=== PATIENT | male | born 1960 | race Caucasian/White ===

== ENCOUNTER 2017-12-22 21:45 | Inpatient (IN) ==
--- NOTE | 2017-12-22 22:30 | Emergency Department Note ---
Disposition Clinical Impression: Pulmonary embolism and infarction Disposition: Admitted As Inpatient Condition: Good Forms: ED Satisfaction Letter Time of Disposition: 23:01 General Adult HPI - General Chief complaint: ED Recheck/Abnormal Lab/Rx Stated complaint: "bilatereral PE" Time Seen by Provider: 12/22/17 22:12 Source: EMS Limitations: no limitations Nursing Notes Reviewed: Yes Vital Signs Reviewed: Yes - History of Present Illness HPI Narrative: Bilateral pulmonary embolism after traveling here from [place] yesterday. Start having left-sided chest pain last night. Shortness of breath ensued today. [facility] and sent here. Did get some mild relief of the left- sided chest pain and shoulder pain with lidocaine gel. Does have a history of PE in January. He was on Primaxin until June after some normal coag studies they stopped the productive. The initial PE was provoked by surgery. This PE is provoked by prolonged travel. Pain Scale: 6 - Related Data Allergies Allergy/AdvReac Type Severity Reaction Status Date / Time ibuprofen [From Motrin] Allergy See Verified 12/22/17 22:17 Comments pseudoephedrine Allergy Hallucinati Verified 12/22/17 22:18 [From Sudafed] ng All systems ED: reviewed and negative except as stated. Constitutional: Denies: fever, chills ENT ED: Denies: congestion Cardiovascular: Reports: chest pain, dyspnea on exertion. Denies: syncope Respiratory: Reports: dyspnea. Denies: cough, wheezes, sputum production Gastrointestinal: Denies: abdominal pain, nausea, vomiting, diarrhea, hematemesis, melena, hematochezia Genitourinary: Denies: urgency, dysuria, frequency, hematuria Musculoskeletal: Reports: back pain (Left-sided shoulder blade tenderness). Denies: neck pain Integumentary: Denies: rash Neurological: Denies: headache, weakness Past Medical History - Past Medical History Attestation: Yes The following information was validated with the patient. Source: patient Medical history: Reports: other (PE) Psychiatric history: Reports: no psych history - Social History Smoking Status: Former smoker Smokeless Tobacco Status: No Alcohol use: Reports: none Drug use: Reports: none Physical Exam - General Limitations: no limitations General appearance: alert, in no apparent distress - Head Head exam: atraumatic, normocephalic, normal inspection - Eye Eye exam: Present: normal appearance, PERRL, EOMI - ENT ENT exam: normal exam, normal oropharynx, mucous membranes moist - Neck Neck exam: Present: normal inspection, full ROM, trachea midline - Chest Chest inspection: Present: normal inspection, symmetric chest wall rise - Respiratory Respiratory exam: Present: normal lung sounds bilaterally. Absent: respiratory distress, accessory muscle use - Cardiovascular Cardiovascular exam: Present: regular rate, normal rhythm, normal heart sounds - Abdominal Exam Abdominal exam: Present: soft, Non-Tender. Absent: tenderness, distention, guarding, rebound, rigidity, organomegaly - Extremities Exam Extremities exam: Present: normal inspection, full ROM, normal capillary refill. Absent: tenderness, pedal edema - Back Exam Back exam: Present: normal inspection, full ROM. Absent: tenderness - Neurological Exam Neurological exam: Present: alert, oriented X3 - Psychiatric Psychiatric exam: Present: normal affect, normal mood - Skin Skin exam: Present: warm, dry, intact, normal color Course Course Narrative: [facility] at their facility. They department unable to send the disc however we do have a read from them that shows what appears to be acute filling defects in the segmental arteries of the anterior left lower lobe lingula and posterior lateral right lower lobe. There is also a small nonocclusive filling defect within the right upper lobe segmental pulmonary arteries which appear to be chronic given his history of prior PE. There is also suggestion of a possible lobe infarct on the PE read as well. Patient's lab work up shows an elevated d-dimer. Patient has no history of bleeding disorders. No history of GI bleeding or intercerebral hemorrhage. He states that he was on for the accident previously however it made him feel funny and his head. His troponin was negative and he had an INR of 0.9. Patient is having ongoing left-sided chest pain and shortness of breath. He describes the pain as a 10 out of 10. He did get some mild relief with lidocaine gel initially prior to coming to the emergency department however that he states this is were off. He is requesting a lidocaine patch at this time. We have offered other pain medication he is refusing this time. We will admit patient to the hospital to initiate anticoagulation as well as due to patient's ongoing chest pain and short of breath and the patient has bilateral pulmonary embolus him.. He is maintaining an oxygen saturation of 97 % on 2 L. He states that this does also help with his shortness of breath. He was given Lovenox at the [facility] prior to arrival here. - Consultations Consultation #1: Dr Mata accepted in stable condition. Time: 22:45 Vital Signs Temperature 98.2 F 12/22/17 21:55 Pulse Rate 83 12/22/17 21:55 Respiratory Rate 16 12/22/17 21:55 Blood Pressure 130/94 12/22/17 21:55 O2 Sat by Pulse Oximetry 97 12/22/17 21:55 Temperature 98.2 F 12/22/17 21:55 Pulse Rate 83 12/22/17 21:55 Respiratory Rate 16 12/22/17 21:55 Blood Pressure 130/94 12/22/17 21:55 O2 Sat by Pulse Oximetry 97 12/22/17 21:55 Oxygen Delivery Oxygen Delivery Room Air Medical Decision Making - Medical Records Medical records reviewed: Yes I reviewed the patient's medical records. - Lab Data Lab results reviewed: Yes I reviewed the patient's lab results.
--- NOTE | 2017-12-22 22:54 | Emergency Department Note ---
Disposition Clinical Impression: Pulmonary embolism and infarction Disposition: Admitted As Inpatient Condition: Good [facility]: [facility] - Nesha Ricketts [Family Provider] - Forms: ED Satisfaction Letter General Adult HPI - General Chief complaint: ED Recheck/Abnormal Lab/Rx Stated complaint: "bilatereral PE" Time Seen by Provider: 12/22/17 22:12 Source: EMS Limitations: no limitations Nursing Notes Reviewed: Yes Vital Signs Reviewed: Yes - History of Present Illness Pain Scale: 6 - Related Data Home Medications Medication Instructions Recorded Confirmed Aspirin [Lo-Dose Aspirin EC] 81 mg PO DAILY 12/22/17 12/22/17 Capsaicin [Arthritis Pain Relief] 1 appl TP BID 12/22/17 12/22/17 Cholecalciferol (Vitamin D3) 400 unit PO DAILY 12/22/17 12/22/17 [Vitamin D3] Cyanocobalamin (Vitamin B-12) 1,000 mcg PO DAILY 12/22/17 12/22/17 [Vitamin B12] Doxycycline Hyclate [Vibramycin] 100 mg PO BID 12/22/17 12/22/17 Erythromycin OPTH Oint 1 appl BOTH EYES HS 12/22/17 12/22/17 Fluticasone Propionate Nasal 1 puff IH BID 12/22/17 12/22/17 [Flonase] Guaifenesin [Mucus ER] 600 mg PO TID 12/22/17 12/22/17 Lidocaine 4% CRM (LMX) [Lmx 4] 1 appl TP Q8HR 12/22/17 12/22/17 Polyvinyl Alcohol/Povidone 1 drop OP QID 12/22/17 12/22/17 [Artificial Tears Drops] Silver Sulfadiazine [Silvadene] 1 appl TP BID PRN 12/22/17 12/22/17 Allergies Allergy/AdvReac Type Severity Reaction Status Date / Time ibuprofen [From Motrin] Allergy See Verified 12/22/17 22:17 Comments pseudoephedrine Allergy Hallucinati Verified 12/22/17 22:18 [From Sudafed] ng Constitutional: Denies: fever, chills ENT ED: Denies: congestion Cardiovascular: Reports: chest pain, dyspnea on exertion. Denies: syncope Respiratory: Reports: dyspnea. Denies: cough, wheezes, sputum production Gastrointestinal: Denies: abdominal pain, nausea, vomiting, diarrhea, hematemesis, melena, hematochezia Genitourinary: Denies: urgency, dysuria, frequency, hematuria Musculoskeletal: Reports: back pain (Left-sided shoulder blade tenderness). Denies: neck pain Past Medical History - Past Medical History Medical history: Reports: no medical history Psychiatric history: Reports: no psych history - Social History Smoking Status: Former smoker Smokeless Tobacco Status: No Alcohol use: Reports: none Drug use: Reports: none Physical Exam - General Limitations: no limitations General appearance: alert, in no apparent distress Course Vital Signs Temperature 98.2 F 12/22/17 21:55 Pulse Rate 83 12/22/17 21:55 Respiratory Rate 16 12/22/17 21:55 Blood Pressure 130/94 12/22/17 21:55 O2 Sat by Pulse Oximetry 97 12/22/17 21:55 Temperature 98.2 F 12/22/17 21:55 Pulse Rate 83 12/22/17 21:55 Respiratory Rate 16 12/22/17 21:55 Blood Pressure 130/94 12/22/17 21:55 O2 Sat by Pulse Oximetry 97 12/22/17 21:55 Oxygen Delivery Oxygen Delivery Room Air Attestation Statement - Attestation Attestation: I, Pavan Martin MD, personally evaluated this patient and discussed their management with the resident physician. I reviewed the resident's note and agree with the documented findings, medical decision making, and plan of care. 57-year-old male [facility] for bilateral pulmonary emboli. Patient has a history of pulmonary emboli about a year ago after a surgical procedure on his shoulder. He was on Pradaxa which was discontinued 6 months ago. Over the past 2 days he drove here from [place]. He states he drove to [facility] yesterday and was fine last evening and then this morning when he woke up he was having some pleuritic left lower anterolateral chest pain with some mild shortness of breath. This got progressively worse throughout the day and radiates to the left scapular region. He drove here today and went straight to the CT where he had a workup including a CTA of the chest which showed extensive bilateral pulmonary emboli with groundglass opacity in the left upper lobe which could represent infectious or inflammatory process although infarction is not excluded. Patient received Lovenox 1 mg/kg at the CT prior to transfer here for admission. CT reported they did not have any critical care beds available for admission of the patient at their facility. Patient also admits to some left calf pain for the past few days and states that several days ago he had right calf pain which resolved. On examination patient is a well-developed well-nourished male in no acute distress. He is alert and oriented 3. There is no cyanosis or diaphoresis. Chest is nontender to palpation. Breath sounds are slightly decreased on the left. No rales or wheezes noted. Heart regular rate and rhythm. Abdomen soft and nontender with normal bowel sounds. Some mild left calf tenderness. CT records reviewed. The hospitalist, Dr. Shankar, was consulted and accepted admission of the patient.
[2017-12-23] MEDS ORDERED: Naloxone 0.4 MG/ML INJ IVP PRN (01:55)
--- NOTE | 2017-12-23 03:13 | Internal Med History&Physical ---
Date of Encounter: 12/23/17 Time of Encounter: 01:00 Internal Medicine - H&P: HPI Chief complaint: Chest pain Admitted From: Home Plans for Post Hospital Care: Home History of present illness: Mr. Harp is a 57 year old male transferred from the [facility] for chest pain. Past medical history is significant for pulmonary embolism, ROSE MARIE. Patient has history of pulmonary embolism, which was provoked by surgery, and the patient was placed on Pradaxa from January 2017 to Jun 2017. Patient started to have left-sided chest pain since yesterday when he drove from [place] to [place]. The pain is sharp, radiated to left side shoulder blader, 10/10 and worsening on deep breathing. Patient also complaining of left leg pain and swelling. In [place] hospital, CTA has been done, shows multiple bilateral acute PE with a right-sided chronic PE. Patient was given Lovenox 100 mg subcutaneously once and transferred to our hospital for further management. Past Med Surg Social Fam HX - Past Medical History Medical history: no medical history Additional medical history: PE Psychiatric history: no psych history - Past Surgical History Additional surgical history: shoulder, elbow - Social History Smoking Status: Former smoker Smokeless Tobacco Status: No Alcohol use: none Drug use: none - Family History Father Living Status: Age at : 74 Cause of : Prescription overdose Hx Family Cardiac Disorders: Yes Internal Medicine - H&P: Meds Aspirin [Lo-Dose Aspirin EC] 81 mg PO DAILY 12/22/17 [History] Capsaicin [Arthritis Pain Relief] 1 appl TP BID 12/22/17 [History] Cholecalciferol (Vitamin D3) [Vitamin D3] 400 unit PO DAILY 12/22/17 [History] Cyanocobalamin (Vitamin B-12) [Vitamin B12] 1,000 mcg PO DAILY 12/22/17 [History ] Doxycycline Hyclate [Vibramycin] 100 mg PO BID 12/22/17 [History] Erythromycin OPTH Oint 1 appl BOTH EYES HS 12/22/17 [History] Fluticasone Propionate Nasal [Flonase] 1 puff IH BID 12/22/17 [History] Guaifenesin [Mucus ER] 600 mg PO TID 12/22/17 [History] Lidocaine 4% CRM (LMX) [Lmx 4] 1 appl TP Q8HR 12/22/17 [History] Polyvinyl Alcohol/Povidone [Artificial Tears Drops] 1 drop OP QID 12/22/17 [ History] Silver Sulfadiazine [Silvadene] 1 appl TP BID PRN 12/22/17 [History] 3 Allergy/AdvReac Type Severity Reaction Status Date / Time ibuprofen [From Motrin] Allergy See Verified 12/22/17 22:17 Comments pseudoephedrine Allergy Hallucinati Verified 12/22/17 22:18 [From Sudafed] ng All Systems PM: A 10-system review of systems was performed and is negative for pertinent findings except as documented above in the HPI. - Constitutional Vitals: Temp Pulse Resp BP Pulse Ox 98.2 F 76 17 119/86 95 12/23/17 00:40 12/23/17 00:40 12/23/17 00:40 12/23/17 00:40 12/23/17 01:31 General appearance: Present: mild distress, A&O X 3, answers questions appropriately - Head Head exam: Present: atraumatic, normocephalic - Eye Eye exam: Present: PERRL, conjuntiva pink, sclera anicteric Pupils: Present: PERRL - Neck Neck exam general surgery: Present: supple, trachea midline. Absent: lymphadenopathy - Respiratory Respiratory exam: Present: CTAB. Absent: accessory muscle use, rales, rhonchi, wheezes - Cardiovascular Cardiovascular exam: Present: RRR, +S1, +S2. Absent: diastolic murmur, gallop, rubs, systolic murmur - GI/Abdominal GI/Abdominal exam: Present: normal bowel sounds, soft, no peritoneal signs. Absent: distended, tenderness - Extremities Exam Extremities exam: Present: warm, radial pulses palpable and symmetrical. Absent : calf tenderness, cyanotic, pedal edema - Neurological Exam Neurological exam: Present: CN II-XII intact, oriented X3, no focal deficits. Absent: pronater drift, facial droop, speech deficit - Skin Skin exam: Present: dry, intact - Assessment and plan (1) ROSE MARIE (obstructive sleep apnea) Current Visit: Yes Status: Acute Assessment and plan: Patient has ROSE MARIE but not on CPAP at home. Will place patient on NC oxygen during night and closely monitor patient. Try to avoid opioid pain medications. (2) Sinusitis Current Visit: Yes Status: Acute Assessment and plan: Patient was treated as outpatient with doxycycline. We will continue his home medication by mouth doxycycline. Qualifiers: Sinusitis location: unspecified location Chronicity: subacute Qualified Code(s): J01.90 - Acute sinusitis, unspecified (3) DVT prophylaxis Current Visit: Yes Status: Acute Assessment and plan: Patient is on full anticoagulation with Lovenox (4) Pulmonary embolism and infarction Current Visit: Yes Status: Acute Assessment and plan: Patient has recent long distance driving and CT shows acute pulmonary embolism. Patient denies family history of thrombosis disease. - Continue Lovenox 1mg/kg sc q12h - May switch to by mouth anticoagulation. - No signs of right ventricular strain on CTA. - Continue pain medication for pain control. - Continue oxygen supportive treatment. Patient needs oxygen because he does not dare to take deep breath because of pain. - Doppler bilateral LE to rule out DVT. - Time Spent With Patient Total time spent is greater than 50% in coordination of care (as documented) at patient's floor/unit and/or counseling patient:40 minutes Greater than 35 minutes
[2017-12-23 05:25] LABS: Basophils % 0.2 %; Eosinophils # 0.1 K/mcL (0.0-0.6); Eosinophils % 1.2 %; Hematocrit 41.9 % (37.5-50.1); Immature Granulocytes % 0.2 % (0-4); Lymphocytes # 1.9 K/mcL (0.6-4.6); Lymphocytes % 22.2 %; Mean Corpuscular HGB Conc 33.4 g/dL (31.6-35.5); Mean Corpuscular Hemoglobin 30.4 pg (28.0-33.3); Mean Corpuscular Volume 91.1 fL (83.0-100.0); Mean Platelet Volume 10.7 fL (9.4-12.4); Monocytes # 0.8 K/mcL (0.0-1.3); Monocytes % 9.7 %; Neutrophils # 5.7 K/mcL (1.6-8.9); Platelet Count 171 K/mcL (140-400); Red Cell Distribution Width 13.4 % (11.5-14.5); Segmented Neutrophils % 66.5 %
[2017-12-23 05:29] LABS: INR 1.1; Prothrombin Time 11.7 Seconds (9.4-12.1)
[2017-12-23] MEDS: *HR* Enoxaparin 120 MG/0.8 ML SYRINGE SQ SCH ×2 (05:30→17:37)
[2017-12-23] MEDS: Ketorolac 30 MG/ML VIAL IVP PRN ×2 (05:31→17:38)
[2017-12-23 05:34] LABS: BUN/Creatinine Ratio 14 (6-26); Blood Urea Nitrogen 11 mg/dL (6-20); Calcium 8.9 mg/dL (8.6-10.3); Carbon Dioxide 22 mEq/L (23-29); Chloride 106 mEq/L (98-107); Glucose 123 mg/dL (70-105); Osmolality,Calculated 285 (280-300); Potassium 3.7 mEq/L (3.5-5.1); Sodium 137 mEq/L (136-145); eGFR For African Americans > 60 (> 60); eGFR For Non-African Americans > 60 (> 60)
[2017-12-23] MEDS: Artificial Tears SOLN 15 ML BOTTLE OP SCH ×4 (09:47→20:51)
[2017-12-23] MEDS: Aspirin Enteric Coated 81 MG Tablet PO SCH (09:47)
[2017-12-23] MEDS: Fluticasone Propionate Nasal 50 MCG/SPRAY BOTTLE NS SCH ×2 (09:47→20:52)
[2017-12-23] MEDS: Doxycycline 100 MG CAPSULE PO SCH ×2 (09:47→20:51)
[2017-12-23] MEDS: Cyanocobalamin (B-12) 1,000 MCG TABLET PO SCH (09:48)
[2017-12-23] MEDS: Cholecalciferol (D-3) 1,000 UNIT TABLET PO SCH (09:48)
--- NOTE | 2017-12-23 11:53 | Event Note ---
Date of Encounter: 12/23/17 Time of Encounter: 11:42 Seen and evaluated Admitted and being managed for acute unprovoked, subsegmental PE, with a chornic R sided PE He is not hypoxic, not tachcardic No R heart strain, no trop elevation he is on lovenox Awaiting LE doppler Continue current management Will qureshi-check erasmo Patient will be on a/c for life, educated, agree with plan
[2017-12-23] MEDS ORDERED: Erythromycin OPTH Oint BOTH EYES SCH (21:00)
--- NOTE | 2017-12-23 23:39 | Event Note ---
Date of Encounter: 12/23/17 Time of Encounter: 23:25 Alerted by Cardio Dopplers that pt. had positive result for DVT in LE. Preliminary report showed: VENOUS DOPPLER PRELIMINARY REPORT POSITIVE ACUTE DVT LEFT LOWER EXTREMITY LEFT +POP V +JOHN V RIGHT LOWER EXTREMITY NEGATIVE DVT/SVT Confirmed with Dr. Tubbs that patient is currently anticoagulated with Lovenox 110 mg subcutaneous every 12 hours. Pt. to be monitored closely.
[2017-12-24] MEDS: Ketorolac 30 MG/ML VIAL IVP PRN (03:02)
[2017-12-24] MEDS: *HR* Enoxaparin 120 MG/0.8 ML SYRINGE SQ SCH (05:49)
[2017-12-24] MEDS: Cyanocobalamin (B-12) 1,000 MCG TABLET PO SCH (08:55)
[2017-12-24] MEDS: Fluticasone Propionate Nasal 50 MCG/SPRAY BOTTLE NS SCH (08:55)
[2017-12-24] MEDS: Aspirin Enteric Coated 81 MG Tablet PO SCH (08:55)
[2017-12-24] MEDS: Cholecalciferol (D-3) 1,000 UNIT TABLET PO SCH (08:55)
[2017-12-24] MEDS: Doxycycline 100 MG CAPSULE PO SCH (08:55)
[2017-12-24] MEDS: Artificial Tears SOLN 15 ML BOTTLE OP SCH (08:56)
[2017-12-24 11:04] VITALS: BP 133/95
--- NOTE | 2017-12-24 11:13 | Discharge Summary ---
- NOTES TO OUTPATIENT PROVIDER Notes to Outpatient Provider: Admitted for acute unprovoked LLE DVT and PE. Given loven ix SQ BID inpatient, transitioned to xarelto on discharge. Patient is educated about compliance and follow up with PCP, recommend hematology eval routinely, with PCP when patient returns to [place] Date of Encounter: 12/24/17 Time of Encounter: 11:11 - Discharge Diagnosis (1) Pulmonary embolism and infarction Priority: Primary Status: Acute (2) ROSE MARIE (obstructive sleep apnea) Priority: Secondary Status: Chronic (3) Sinusitis Priority: Primary Status: Acute Qualifiers: Sinusitis location: unspecified location Chronicity: subacute Qualified Code(s): J01.90 - Acute sinusitis, unspecified (4) DVT prophylaxis Priority: Primary Status: Acute (5) DVT (deep venous thrombosis) Priority: Primary Status: Acute Qualifiers: DVT location: lower extremity Affected thrombotic vein of extremity: unspecified vein of extremity Chronicity: acute Laterality: left Qualified Code(s): I82.402 - Acute embolism and thrombosis of unspecified deep veins of left lower extremity Hospital course: Mr. Harp is a 57 year old male transferred from the [facility] for chest pain. Past medical history is significant for pulmonary embolism, ROSE MARIE. Patient has history of pulmonary embolism, which was provoked by surgery, and the patient was placed on Pradaxa from January 2017 to Jun 2017. Patient started to have left-sided chest pain 12/22 /when he drove from [place] to [place]. The pain is sharp, radiated to left side shoulder blader, 10/10 and worsening on deep breathing. Patient also complained of left leg pain and swelling. In [place] hospital, CTA has been done, shows multiple bilateral acute PE with a right- sided chronic PE. Patient was given Lovenox 100 mg subcutaneously once and transferred to our hospital for further management. In-patient, here, he remained stable on lovenox 110 BID SQ. Doppler of LE showed acute DVT. Other work up is stable he is discharged on xarelto (provided with the pills at the bedside), and encouraged to follow up with his PCP at [place] He is not tachycardic, tachypneic, hypoxic, he is stable and ambulatory Follow up with PCP Discharge discussed with: patient, nurse Time spent discussing smoking cessation with patient: 3 to 10 minutes - Time Spent with Patient Total time spent providing and/or coordinating discharge services: Less than 30 minutes - Discharge Medications Prescriptions: Rivaroxaban [Xarelto] 1 dose PO AD 30 Days pack Home Medications: Aspirin [Lo-Dose Aspirin EC] 81 mg PO DAILY 12/22/17 [History] Capsaicin [Arthritis Pain Relief] 1 appl TP BID 12/22/17 [History] Cholecalciferol (Vitamin D3) [Vitamin D3] 400 unit PO DAILY 12/22/17 [History] Cyanocobalamin (Vitamin B-12) [Vitamin B12] 1,000 mcg PO DAILY 12/22/17 [History ] Doxycycline Hyclate [Vibramycin] 100 mg PO BID 12/22/17 [History] Erythromycin OPTH Oint 1 appl BOTH EYES HS 12/22/17 [History] Fluticasone Propionate Nasal [Flonase] 1 puff IH BID 12/22/17 [History] Guaifenesin [Mucus ER] 600 mg PO TID 12/22/17 [History] Lidocaine 4% CRM (LMX) [Lmx 4] 1 appl TP Q8HR 12/22/17 [History] Polyvinyl Alcohol/Povidone [Artificial Tears Drops] 1 drop OP QID 12/22/17 [ History] Silver Sulfadiazine [Silvadene] 1 appl TP BID PRN 12/22/17 [History] Rivaroxaban [Xarelto] 1 dose PO AD 30 Days pack 12/23/17 [Rx] Allergies/Adverse Reactions: 3 Allergy/AdvReac Type Severity Reaction Status Date / Time atenolol Allergy Rash Verified 12/24/17 02:03 ibuprofen [From Motrin] Allergy See Verified 12/22/17 22:17 Comments pseudoephedrine Allergy Hallucinati Verified 12/22/17 22:18 [From Sudafed] ng Date of admission: 12/22/17 23:36 [facility] clinician: Remy Vu Anticipated date of discharge: 12/24/17 - Constitutional Vitals: Temp Pulse Resp BP Pulse Ox 97.9 F 68 15 133/95 94 12/24/17 11:03 12/24/17 11:03 12/24/17 11:03 12/24/17 11:03 12/24/17 11:03 General appearance: Present: A&O X 3, pleasant, no acute distress, answers questions appropriately - Head Head exam: Present: atraumatic, normocephalic - Eye Eye exam: Present: PERRL, conjuntiva pink, sclera anicteric Pupils: Present: PERRL - Neck Neck exam general surgery: Present: supple, trachea midline. Absent: lymphadenopathy - Respiratory Respiratory exam: Present: CTAB. Absent: accessory muscle use, rales, rhonchi, wheezes - Cardiovascular Cardiovascular exam: Present: RRR, +S1, +S2. Absent: diastolic murmur, gallop, rubs, systolic murmur - GI/Abdominal GI/Abdominal exam: Present: normal bowel sounds, soft, no peritoneal signs. Absent: distended, tenderness - Extremities Exam Extremities exam: Present: warm, radial pulses palpable and symmetrical. Absent : calf tenderness, cyanotic, pedal edema - Neurological Exam Neurological exam: Present: alert, CN II-XII intact, oriented X3, no focal deficits. Absent: pronater drift, facial droop, speech deficit - Skin Skin exam: Present: dry, intact - Patient Status Disposition: Home, Self-Care Condition: Good Functional capacity at discharge: independent ambulation Overall status at discharge: patient is back to baseline - Discharge Instructions [facility] With: [facility]Primary Care Provider[facility] - Nesha Ricketts [Family Provider] - - Diet and Activity Activity: resume usual activities as tolerated Diet: advance to your usual diet
== END 2017-12-24 13:10 | disposition home or self-care (01) | DRG 176 ==
LOC: EMEROO 21:45 → SUATTDRO 23:36 → 2NENU 23:36
PROVIDERS: ADMIT Internal Medicine; ATTEND Internal Medicine